=== PATIENT | female | born 1995 | race Caucasian/White ===

== ENCOUNTER → 2017-11-20 13:49 | Outpatient (CLI) | payer OTHER, SELFPAY ==
[2017-11-20 14:40] LABS: Add Manual Diff / Slide Review NO; Basophils Percent Auto 0.4 % (0-2); Eosinophils Percent Auto 1.8 % (2-4); Hematocrit 37.3 % (36-46); Hemoglobin 12.8 g/dL (12.0-16.0); Lymphocytes Percent Auto 40.8 % (25-40); Mean Corpuscular HGB Conc 34.3 % (30-36); Mean Corpuscular Hemoglobin 30.6 PG (26-34); Mean Corpuscular Volume 89.3 fL (80-100); Monocytes Percent Auto 11.8 % (3-14); Neutrophils Absolute Auto 3000 /uL (3000-5900); Neutrophils Percent Auto 45.2 % (50-75); Platelet Count 327 X10^3/uL (150-400); Red Blood Cell Count 4.17 X10^6/uL (4.0-5.2); Red Cell Distribution Width 12.9 % (11.6-14.8); White Blood Cell Count 6.7 X10^3/uL (4.5-11.0)
[2017-11-20 15:05] LABS: HEMOLYSIS < 15 (0-50); Iron 187 ug/dL (37-170)
[2017-11-20 15:10] LABS: Alanine Aminotransferase 18 IU/L (9-52); Albumin 4.4 g/dL (3.5-5.0); Albumin Globulin Ratio 1.4 (1.0-2.8); Alkaline Phosphatase 50 U/L (38-126); Aspartate Aminotransferase 22 IU/L (14-36); BUN Creatinine Ratio 12.9 (6-22); Bilirubin Total 0.9 mg/dL (0.2-1.3); Blood Urea Nitrogen 9 mg/dL (7-17); Calcium 9.3 mg/dL (8.4-10.2); Carbon Dioxide 28 mmol/L (22-32); Chloride 105 mmol/L (98-107); Estimated Glomerular Filt Rate > 60.0 mL/min (>60); Globulin 3.1 g/dL (1.7-4.1); Glucose 82 mg/dL (70-100); HEMOLYSIS < 15 (0-50); Potassium 4.2 mmol/L (3.4-5.1); Sodium 143 mmol/L (137-145); Total Protein 7.5 g/dL (6.3-8.2)
[2017-11-20 15:15] LABS: Percent Iron Saturation 54 % (15-50); Total Iron Binding Capacity 347 ug/dL (265-497); Transferrin 282 mg/dL (206-381)
[2017-11-20 15:22] LABS: Free T4, Direct Thyroxine 1.08 ng/dL (0.78-2.19)
[2017-11-20 15:36] LABS: Thyroid Stimulating Hormone 1.74 uIU/mL (0.47-4.68)
[2017-11-20 16:37] LABS: Urine N gonorrhoeae NOT DETECTED
[2017-11-20 16:52] LABS: Urine Chlamydia NOT DETECTED
[2017-11-20 17:44] LABS: HIV 1 and 2 Antibody NEGATIVE (NEGATIVE); Hep C Virus Ab w/Reflex Quant NEGATIVE s/c (NEGATIVE)
[2017-11-23 14:39] LABS: HSV 1 IgM Screen Negative (Negative); HSV 2 IgM Screen Negative (Negative)
[2017-11-24 14:25] LABS: HSV 2 IGG AB < 0.90 index (< 0.90); HSV1IGG < 0.90 index (< 0.90)
[2017-11-24 14:47] LABS: Hepatitis B Core Antibody Nonreactive (Nonreactive)
[2017-11-26 12:26] LABS: Rapid Plasma Reagin NON-REACTIVE
== END ==
PROVIDERS: Visit Provider Specialist
DX: Z20.2 Contact with and (suspected) exposure to infections with a predominantly sexual mode of transmission (principal)
CPT/HCPCS: 36415; 80053; 83540; 83550; 84439; 84443; 85025; 86592; 86694; 86695; 86696; 86703; 86704; 86803; 87491; 87591

== ENCOUNTER → 2019-08-22 12:52 | Outpatient (CLI) | payer OTHER, SELFPAY ==
[2019-08-22 13:24] LABS: Add Manual Diff / Slide Review NO; Basophils Absolute Auto 0 /uL (0-100); Basophils Percent Auto 0.4 % (0-2); Eosinophils Absolute Auto 100 /uL (0-450); Eosinophils Percent Auto 1.6 % (2-4); Hematocrit 38.2 % (36-46); Hemoglobin 13.1 g/dL (12.0-16.0); Lymphocytes Absolute Auto 2700 /uL (1100-4500); Lymphocytes Percent Auto 42.5 % (25-40); Mean Corpuscular HGB Conc 34.3 % (30-36); Mean Corpuscular Hemoglobin 31.4 PG (26-34); Mean Corpuscular Volume 91.4 fL (80-100); Monocytes Absolute Auto 700 /uL (0-900); Monocytes Percent Auto 11.4 % (3-14); Neutrophils Absolute Auto 2800 /uL (1500-7000); Neutrophils Percent Auto 44.1 % (50-75); Platelet Count 335 X10^3/uL (150-400); Red Blood Cell Count 4.17 X10^6/uL (4.0-5.2); Red Cell Distribution Width 12.8 % (11.6-14.8); White Blood Cell Count 6.4 X10^3/uL (4.5-11.0)
[2019-08-22 14:14] LABS: Free T4, Direct Thyroxine 0.85 ng/dL (0.78-2.19)
[2019-08-22 14:28] LABS: Thyroid Stimulating Hormone 1.87 uIU/mL (0.47-4.68)
[2019-08-22 15:32] LABS: Vitamin D 25 Hydroxy (D3) 45.6 ng/mL (30.0-100.0)
== END ==
PROVIDERS: Referring Provider Specialist; Visit Provider Specialist
DX: E04.9 Nontoxic goiter, unspecified (principal); N92.6 Irregular menstruation, unspecified; R53.83 Other fatigue
CPT/HCPCS: 36415; 82306; 84439; 84443; 85025

== ENCOUNTER → 2020-01-02 12:11 | Outpatient (CLI) | payer OTHER, SELFPAY ==
[2020-01-02 12:27] LABS: Add Manual Diff / Slide Review NO; Basophils Absolute Auto 0 /uL (0-100); Basophils Percent Auto 0.3 % (0-2); Eosinophils Absolute Auto 100 /uL (0-450); Eosinophils Percent Auto 1.1 % (2-4); Hematocrit 40.2 % (36-46); Hemoglobin 13.7 g/dL (12.0-16.0); Lymphocytes Absolute Auto 2400 /uL (1100-4500); Lymphocytes Percent Auto 39.8 % (25-40); Mean Corpuscular HGB Conc 34.2 % (30-36); Mean Corpuscular Hemoglobin 30.7 PG (26-34); Mean Corpuscular Volume 89.9 fL (80-100); Monocytes Absolute Auto 600 /uL (0-900); Monocytes Percent Auto 9.8 % (3-14); Neutrophils Absolute Auto 2900 /uL (1500-7000); Platelet Count 354 X10^3/uL (150-400); Red Blood Cell Count 4.47 X10^6/uL (4.0-5.2); Red Cell Distribution Width 12.7 % (11.6-14.8)
[2020-01-02 12:45] LABS: Alanine Aminotransferase 12 IU/L (<35); Albumin 4.9 g/dL (3.5-5.0); Albumin Globulin Ratio 1.4 (1.0-2.8); Alkaline Phosphatase 52 U/L (38-126); Aspartate Aminotransferase 22 IU/L (14-36); BUN Creatinine Ratio 14.5 (6-22); Bilirubin Total 0.6 mg/dL (0.2-1.3); Blood Urea Nitrogen 10 mg/dL (7-17); Calcium 9.8 mg/dL (8.4-10.2); Carbon Dioxide 29 mmol/L (22-32); Chloride 103 mmol/L (98-107); Creatine Kinase 58 U/L (30-135); Estimated Glomerular Filt Rate > 60.0 mL/min (>60); Globulin 3.6 g/dL (1.7-4.1); Glucose 101 mg/dL (70-100); HEMOLYSIS < 15 (0-50); Potassium 4.3 mmol/L (3.4-5.1); Sodium 140 mmol/L (137-145); Total Protein 8.5 g/dL (6.3-8.2)
[2020-01-02 12:57] LABS: Troponin I < 0.012 ng/mL (0.01-0.034)
== END ==
PROVIDERS: PCP Nurse Practitioner; Referring Provider Nurse Practitioner; Visit Provider Nurse Practitioner
DX: R07.89 Other chest pain (principal)
CPT/HCPCS: 36415; 80053; 82550; 83735; 84484; 85025

== ENCOUNTER → 2020-01-05 10:08 | Outpatient (CLI) | payer OTHER, SELFPAY ==
--- NOTE | 2020-01-25 08:04 | PM.CARDMON.1 ---
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 Patient did have a 17.2nd run of ventricular bigeminy Impression: Essentially normal 7 day skein spooler.
== END ==
PROVIDERS: PCP Nurse Practitioner; Referring Provider Nurse Practitioner; Visit Provider Nurse Practitioner
DX: R07.9 Chest pain, unspecified (principal)
CPT/HCPCS: 0296T; 0298T

== ENCOUNTER → 2020-01-05 12:48 | Outpatient (CLI) | payer OTHER, SELFPAY ==
--- NOTE | 2020-01-05 12:50 | DI.US.S_ITS ---
LIMITED ULTRASOUND OF LEFT BREAST: 01/05/2020 CLINICAL: Focal left breast pain. No prior exams were available for comparison. Continuous wave Doppler ultrasound of the left breast was performed. No significant abnormalities were seen sonographically in the left breast. Dense fibroglandular tissue but no mass is identifed in the patient-indicated area of pain. IMPRESSION: NEGATIVE There is no sonographic evidence of malignancy. This exam was interpreted at Station ID: [id number]. Electronically Signed By: Vishnu pereyra/[email or web address]:01/05/2020 14:14:15 Ultrasound BI-RADS: 1 Negative
--- NOTE | 2020-01-05 12:50 | DI.US.S_ITS ---
LIMITED ULTRASOUND OF RIGHT BREAST: 01/05/2020 CLINICAL: Focal right breast pain. No prior exams were available for comparison. Ultrasound of the right breast was performed. Armenta scale images of the real-time examination were reviewed. No significant abnormalities were seen sonographically in the right breast. Dense fibroglandular tissue but no mass is identifed in the patient-indicated area of pain. IMPRESSION: NEGATIVE There is no sonographic evidence of malignancy. This exam was interpreted at Station ID: [id number]. Electronically Signed By: Vishnu pereyra/[email or web address]:01/05/2020 14:13:12 letter sent: Clinical Evaluation Ultrasound BI-RADS: 1 Negative
== END ==
PROVIDERS: PCP Nurse Practitioner; Referring Provider Nurse Practitioner; Visit Provider Nurse Practitioner
DX: R92.2 Inconclusive mammogram (principal); N64.4 Mastodynia; R07.9 Chest pain, unspecified; Z80.3 Family history of malignant neoplasm of breast
CPT/HCPCS: 0296T; 76642

== ENCOUNTER → 2020-01-09 09:10 | Outpatient (CLI) | payer OTHER, SELFPAY ==
[2020-01-09 23:09] LABS: COVID19 Sendout Not Detected (Not Detect)
== END ==
PROVIDERS: PCP Nurse Practitioner; Visit Provider Physician Assistant
DX: Z11.59 Encounter for screening for other viral diseases (principal)
CPT/HCPCS: 87635

== ENCOUNTER → 2020-01-12 06:53 | Outpatient (CLI) | payer OTHER, SELFPAY ==
--- NOTE | 2020-01-12 | DI.ECHO.S_ITS ---
[facility]---------+ [facility] +---------+ : : [address] : : : : [id number] : : : : Phone: [phone]---------+ Echocardiogram Report + + :Name: LORIE DOVER Study Date: 01/12/2020 Height: 67 in : :[facility] Weight: 166 lb : : Gender: Female BSA: 1.9 m2 : :: 1995 Age: 24 yrs BP: 134/81 mmHg: :Reason For Study: CHEST PAIN : :Ordering Physician: SANDI, : :ALEX LUTHER Performed By: Aubrie Adame : :Referring: ALEX JUNIOR : + + Interpretation Summary The left ventricle is normal in size and wall thickness. Left ventricular systolic function appears normal without focal wall motion abnormalities. The ejection fraction is estimated to be 55-60%. The right ventricle is normal in size and function. Pulmonary artery pressures cannot be estimated because of the lack of a measurable TR jet velocity but the IVC suggests a CVP of around 3 mmHg. Both atria are normal in size. There is no significant valvular heart disease. The aortic root is normal size. Procedure: A two-dimensional transthoracic echocardiogram with color flow and Doppler was performed. The study quality was technically adequate. There is no prior echocardiogram noted for this patient. The heart rate ranged between 64-103 bpm during the study. Left Ventricle: The left ventricle is normal in size and wall thickness. Left ventricular systolic function appears normal without focal wall motion abnormalities. The ejection fraction is estimated to be 55-60%. Diastolic parameters suggest probable normal left ventricular diastolic function and normal filling pressures. Right Ventricle: The right ventricle is normal in size and function. Atria: Both atria are normal in size. There is no Doppler evidence for an interatrial shunt. Mitral Valve: The mitral valve is normal in structure and function. There is trace mitral regurgitation. Aortic Valve: The aortic valve is trileaflet. The aortic valve opens well. There is no aortic valve stenosis. No aortic regurgitation is present. Tricuspid Valve: The tricuspid valve is normal in structure and function. No tricuspid regurgitation. Pulmonary artery pressures cannot be estimated because of the lack of a measurable TR jet velocity but the IVC suggests a CVP of around 3 mmHg. Pulmonic Valve: The pulmonic valve leaflets are thin and pliable; valve motion is normal. There is trace pulmonic regurgitation. There is no significant valvular heart disease. Great Vessels: The aortic root is normal size. The ascending aorta could not be visualized. The IVC is of normal diameter and collapses greater than 50% with a sniff. This suggests a low right atrial pressure of 3 mm Hg. Pericardium/ Pleura There is no pericardial effusion. There is no pleural effusion. MMode/2D Measurements & Calculations LVIDd: 4.4 cm LVOT diam: 2.1 cm LVIDs: 3.0 cm Ao root diam: 3.1 cm FS: 31.0 % Ao Arch Diam (Prox Trans): 2.2 cm EPSS: 0.44 cm IVSd: 0.74 cm LVPWd: 0.75 cm LV rondon. diameter/BSA (cm/m^2): 2.3 LV sys. diameter/BSA (cm/m^2): 1.6 LA A2 area: 15.3 cm2 RA long axis: 4.4 cm LA A4 area: 14.5 cm2 RA area: 11.9 cm2 LA length (vol): 4.3 cm RA vol: 27.3 ml LA vol: 43.9 ml RA : 14.6 ml/m2 LA vol index: 23.5 ml/m2 IVC diam: 1.5 cm RVD1 (basal): 3.4 cm TAPSE: 2.2 cm Doppler Measurements & Calculations Ao V2 max: 117.0 cm/sec LVOT Max Manuel: 95.7 cm/sec Ao V2 mean: 76.8 cm/sec LV V1 max P.7 mmHg Ao max P.5 mmHg LV V1 VTI: 17.2 cm Ao mean P.7 mmHg BECKY(I,D): 3.1 cm2 Ao V2 VTI: 20.2 cm BECKY(V,D): 2.9 cm2 sev ratio: 0.85 BECKY indexed to BSA (cm^2/m^2): 1.6 MV E max manuel: 87.1 cm/sec PA V2 max: 70.4 cm/sec MV A max manuel: 38.2 cm/sec PA V2 mean: 46.2 cm/sec MV E/A: 2.3 PA mean P.0 mmHg Med Peak E' Manuel: 16.7 cm/sec PA pr(Accel): 20.8 mmHg E/E' med: 5.2 Lat Peak E' Manuel: 18.4 cm/sec E/E' lat: 4.7 E/e' average: 5.0 MV dec time: 0.23 sec SV(LVOT): 62.0 ml Reading Physician:02:08 PM
--- NOTE | 2020-01-12 09:04 | PM.TREADMILL ---
Cardiac Stress Test Report Referral & Results Date Patient Seen: 01/12/20 Time Patient Seen: 08:45 Requesting provider: Luly Krueger Indication: Chest pain, presyncope Rest ECG: Normal sinus rhythm Procedure Note: Today following both written and verbal informed consent, the patient was exercised according to a standard Jamin protocol. The patient exercised for a total of 10 minutes 4 seconds achieving a maximum heart rate of 195. Patient's maximum systolic blood pressure was 166. This was an estimated 12.8 METs. Normal hemodynamic response to exercise. No signs or symptoms of angina. Presenting symptoms of chest pain, jaw claudication, and presyncope not reproduced on exercise. No ST changes, no change in rhythm. Normal exercise capacity (JOHNSON +5% on active scale). Impression: Low probability for ischemia. No inducible arrhythmia. Marquez treadmill score of 10 is correlated with 97% 5 year survival from cardiac causes of mortality. Please note: Actual ECG tracings can be found in the PACS system.
== END ==
PROVIDERS: PCP Nurse Practitioner; Referring Provider Nurse Practitioner; Visit Provider Nurse Practitioner
DX: R07.9 Chest pain, unspecified (principal); R55 Syncope and collapse
CPT/HCPCS: 93016; 93017; 93018; 93306

== ENCOUNTER → 2020-06-15 16:25 | Outpatient (CLI) | payer OTHER, SELFPAY ==
[2020-06-15] MEDS: COVID-19 VACC #1, MRNA(MOD) 100 MCG/0.5 ML VIAL IM (16:32)
== END ==
PROVIDERS: PCP Nurse Practitioner; Visit Provider Internal Medicine
DX: Z23 Encounter for immunization (principal)
CPT/HCPCS: 0011A; 91301

== ENCOUNTER → 2020-07-13 14:24 | Outpatient (CLI) | payer OTHER, SELFPAY ==
[2020-07-13] MEDS: COVID-19 VACC #2, MRNA(MOD) 100 MCG/0.5 ML VIAL IM (14:32)
== END ==
PROVIDERS: PCP Nurse Practitioner; Visit Provider Internal Medicine
DX: Z23 Encounter for immunization (principal)
CPT/HCPCS: 0012A; 91301

== ENCOUNTER → 2023-03-13 13:38 | Outpatient (CLI) | payer OTHER, SELFPAY ==
[2023-03-13 14:22] LABS: Add Manual Diff / Slide Review NO; Basophils Absolute Auto 0 /uL (0-100); Basophils Percent Auto 0.2 % (0-2); Eosinophils Absolute Auto 0 /uL (0-450); Eosinophils Percent Auto 0.7 % (2-4); Hematocrit 37.9 % (36-46); Hemoglobin 12.8 g/dL (12.0-16.0); Lymphocytes Absolute Auto 2100 /uL (1100-4500); Lymphocytes Percent Auto 38.1 % (25-40); Mean Corpuscular HGB Conc 33.9 % (30-36); Mean Corpuscular Hemoglobin 30.3 PG (26-34); Mean Corpuscular Volume 89.4 fL (80-100); Monocytes Absolute Auto 600 /uL (0-900); Monocytes Percent Auto 11.4 % (3-14); Neutrophils Absolute Auto 2800 /uL (1500-7000); Neutrophils Percent Auto 49.6 % (50-75); Platelet Count 291 X10^3/uL (150-400); Red Blood Cell Count 4.24 X10^6/uL (4.0-5.2); Red Cell Distribution Width 13.1 % (11.6-14.8); White Blood Cell Count 5.6 X10^3/uL (4.5-11.0)
[2023-03-13 14:31] LABS: Monotest Negative (Negative)
== END ==
PROVIDERS: PCP Nurse Practitioner; Referring Provider Obstetrics & Gynecology; Visit Provider Obstetrics & Gynecology
DX: R53.83 Other fatigue (principal)
CPT/HCPCS: 85025; 86318